=== PATIENT | female | born 1995 | race Caucasian/White ===

== ENCOUNTER 2025-03-27 22:39 | Emergency (ER) | payer OTHER, SELFPAY ==
[2025-03-27 22:43] VITALS: BP 164/105
--- NOTE | 2025-03-27 22:54 | ED.GENMED ---
History of Present Illness
General
Chief Complaint: Allergic Reaction
Source: patient
Exam Limitations: none
Time Seen by Provider: 03/27/25 22:47
Nursing documentation reviewed up to this point in time: agreed with
History of Present Illness
History of Present Illness:
30-year-old female with history as noted presents to the ER for evaluation of allergic reaction. Patient has a known severe nut allergy. She says that she had a chocolate truffle tonight that she thinks may have contained nut. Ingestion was about
2 or 3 hours prior to arrival here. Shortly thereafter she started to develop diffuse pruritus which ultimately progressed to face and lip swelling and wheezing. Came to the ER for assessment. She did take Benadryl about 30 minutes prior to
arrival. She denies any sensation of throat swelling, denies feeling short of breath despite some audible wheeze. She denies any nausea or vomiting, abdominal cramping. She has had similar symptoms in the past requiring EpiPen but did not
administer EpiPen tonight.
Review of Systems
Review of Systems
All Other Systems: ROS reviewed and negative except as documented in HPI and ROS
EENT: Reports other (Facial swelling)
Respiratory: Reports trouble breathing (Wheezing); Denies cough
Cardiac: Denies chest pain
ABD/GI: Denies abdominal pain, nausea or vomiting
: Denies flank pain
Musculoskeletal: Denies neck pain or back pain
Skin: Reports itching and rash
Phy Exam
Physical Exam
Physical Exam:
General: Awake, alert, oriented x3; somewhat anxious appearing
Head: Normocephalic, atraumatic
Eyes: Conjunctiva normal, periorbital edema noted bilaterally right greater than left
Face: Patient has periorbital edema and some slight swelling of the upper lip with erythema of the face
Throat: Airway intact, handling secretions�uvula midline with no edema, no tongue swelling, no stridor or voice change
Neck: Trachea midline, supple without meningismus
Lungs: Faint occasional wheeze but no tachypnea or hypoxia
Heart: Regular rate and rhythm, no murmurs, gallops, or rubs
Neuro: Grossly intact
Skin: Warm and dry�diffuse hives and erythema noted
Extremities: No edema, warm and well-perfused, rash as noted above
Scores
Heart Failure Risk
Heart Failure Risk Score: Not Applicable
Heart Score for Chest Pain Patients
STEMI patient?: Not applicable
Withdrawal Assessment of Alcohol
Withdrawal Assessment Completed?: Not applicable
Course
Orders/Labs/Results
Orders:
Orders
03/27/25 22:47
Albuterol Nebs [Ventolin Nebules] 2.5 mg INH R NOW STA
EPINEPHrine PF [Adrenalin] 0.3 mg IM NOW STA
Famotidine [Pepcid] 20 mg IV NOW STA
MethylPREDNISolone PF [Solu-Medrol Pf] 125 mg IV NOW STA
Pulse Ox/cont/shift [RESP] Stat
Quantity: 1
03/27/25 22:48
Test Result ONCE
03/27/25 23:10
Basic Metabolic Panel Urgent
Complete Blood Count/No Diff Urgent
HCG, Serum Qualitative Screen Urgent
Abnormal Lab Results
03/27/25
23:10
MPV 11.6 H fL
(7.4-10.4)
BUN 18 H mg/dl
(7-17)
Glucose 110 H mg/dl
(70-99)
03/27/25 23:10
03/27/25 23:10
Vital Signs
Initial and Last Documented VS:
Initial Vital Signs
Temp Pulse Resp BP Pulse Ox
36.6 C 96 18 164/105 99
03/27/25 22:43 03/27/25 22:43 03/27/25 22:43 03/27/25 22:43 03/27/25 22:43
Last Documented Vital Signs
Temp Pulse Resp BP Pulse Ox
36.6 C 73 17 130/75 98
03/27/25 22:43 03/28/25 00:00 03/28/25 00:00 03/28/25 00:00 03/28/25 00:00
MDM/Problems Addressed
Differential Diagnosis Includes:
Anaphylaxis
MDM/Problems Addressed:
30-year-old female presents with anaphylactic reaction�has a known nut allergy and unintentionally ingested nuts with a chocolate truffle tonight. Received Benadryl prior to arrival. She is mildly hypertensive but otherwise normal vitals.
Physical exam as noted. Will treat with IM epinephrine. Will provide IV steroids, Pepcid. Albuterol for wheezing. Monitor very closely and continue to observe here in the ER.
Symptoms improving on reassessment continue to monitor here in the ER.
Patient symptoms essentially resolved she says she is feeling much better is requesting discharge. Vitals normal, lungs sound clear, facial swelling improved, no longer has rash or pruritus. She is greater than 4 hours from time of ingestion. I
think it is reasonable to discharge at this point at her request that she says she is very familiar with signs and symptoms for which to return and we will have family nearby to keep an eye on her. Will prescribe short course of steroids, refill
for EpiPen although she has 2 EpiPen's available at home she says. All questions answered.
Acute Exacerbation and/or Progression of Chronic Illness: HTN
*Pulse Oximetry
SaO2: 99
Oxygen Mode of Delivery: Room air
Patient hypoxic: no (99%)
*Critical Care Note
Total Time (30-74mins, 75-104mins- exclusive of procedures): 30
comment:
Critical care statement: A total of 30 minutes of critical care time was provided for this patient. This includes management of unstable vital signs, evaluation of the patient at bedside, frequent reassessment, discussion with
consultants/hospitalist, and review of pertinent medical records. This time was separate from time utilized to perform any aforementioned documented procedures
Data Reviewed
Source: patient
ED Attending Note
-
Portions of this chart may have been created with voice recognition software.� Occasional wrong word or��sound alike� substitutions may have occurred due to the inherent limitations of voice recognition software.
Discharge Plan
Departure
Patient Disposition: Home (Routine Discharge)
Date of Disposition: 03/28/25
Time of Disposition: 00:37
Patient with high blood pressure during this ER visit?: Yes
Discharge Problem:
Anaphylaxis
Instructions: Anaphylaxis (DC)
Prescriptions:
New
epinephrine [EpiPen 2-Tadeo] 0.3 mg/0.3 mL auto-injector
0.3 mg IM ONCE Qty: 2 0RF
prednisone 50 mg tablet
50 mg PO DAILY Qty: 4 0RF
Activity Restrictions/Additional Instructions:
Thank you for visiting the Emergency Department at [facility].
1. Please schedule a follow up appointment as directed. Call first thing tomorrow morning to make an appointment.
2. If indicated, please take your medications as instructed and indicated on discharge paperwork.
3. If any of your symptoms do not improve, or persist, or become more severe within 6-12 hours, please return to the emergency department for further care.
4. Please return to the emergency department if you develop a headache, neck pain/stiffness, fever greater than 100.4F, chest pain, shortness of breath, persistent nausea, vomiting, slurred speech, difficulty walking, numbness/tingling, weakness,
signs of infection or any other symptoms that are worrisome to you.
Please call [phone] if you have any questions.
Interventions
Interventions:
*Risk Screen - Suicide Last Done: 03/27/25 22:43
*General Assessment Last Done: 03/27/25 23:17
*Neglect/Abuse Screening Last Done: 03/27/25 22:43
*ED- Fall Risk Assessment Last Done: 03/27/25 23:17
*ED COVID-19 Vaccine History Last Done: 03/27/25 23:17
*ED Influenza Vaccine History Last Done: 03/27/25 23:17
ED- Cardiac Assessment Last Done: 03/27/25 23:13
ED- Pulmonary Assessment Last Done: 03/27/25 23:13
ED-Skin Assessment Last Done: 03/27/25 23:13
Discharge Date and Time
Print Language: GREEK
[2025-03-27] MEDS: PEPCID 20 MG IV (22:57)
[2025-03-27] MEDS: VENTOLIN NEBULES 2.5 MG INH (22:57)
[2025-03-27] MEDS: SOLU-MEDROL PF 125 MG IV (22:58)
[2025-03-27] MEDS: ADRENALIN 0.3 MG IM (22:58)
[2025-03-27 23:13] VITALS: BP 127/87
[2025-03-27 23:16] VITALS: BMI 28.0
[2025-03-27 23:21] LABS: Hematocrit 40.4 % (37.0-47.0); Hemoglobin 14.1 g/dL (12.0-16.0); Mean Corp Hgb Conc. 34.9 g/dL (33.0-37.0); Mean Corpuscular Volume 85.8 fL (81.0-99.0); Platelet Count 268 10^3/uL (130-400); Red Cell Dist. Width 13.2 % (11.5-14.5)
[2025-03-27 23:50] LABS: HCG, Serum Qualitative Screen Negative
[2025-03-27 23:57] LABS: Blood Urea Nitrogen 18 mg/dl (7-17); Calcium 9.3 mg/dl (8.4-10.2); Carbon Dioxide 25 mmol/L (22-30); Chloride 104 mmol/L (98-107); Estimated Creatinine Clearance > 125 ml/min; Glucose 110 mg/dl (70-99); Potassium 4.3 mmol/L (3.5-5.1); Sodium 135 mmol/L (135-145); eGFR > 60.00
[2025-03-28] VITALS: BP 130/75
== END 2025-03-28 00:43 | disposition home or self-care (01) ==
LOC: EMR 22:39
PROVIDERS: EMERGENCY PHYSICIAN Emergency Medicine
DX: T78.2XXA Anaphylactic shock, unspecified, initial encounter (principal); I10 Essential (primary) hypertension; Z91.018 Allergy to other foods
CPT/HCPCS: 99291; 96374; 96375; 96372; 94640; 80048; 84703; 85027